=== PATIENT | male | born 1985 | race Caucasian/White ===

== ENCOUNTER → 2018-08-04 07:03 | Outpatient (CLI) | payer SELFPAY ==
--- NOTE | 2018-08-04 07:10 | MRI_ITS ---
STUDY: MRI THORACIC SPINE WITH AND WITHOUT CONTRAST REASON FOR EXAM: Male, 33 years old. 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 TECHNIQUE: 7.5 ml of Gadavist was administered intravenously for the contrast portion of the examination. COMPARISON: None. FINDINGS: Normal kyphosis of the thoracic spine. There is no substantial scoliosis. T1-2, T2-3, T3-4, T4-5, T5-6, T6-7, T7-8, T8-9, T9-10, T10-11, T11-12: Normal endplates. Normal disc hydration, heights and morphology of the corresponding intervertebral discs. Normal central canal and intervertebral neural foramina at the corresponding levels. There is high T1 and T2 regions within the C7, T7 and T10 vertebra consistent with incidental hemangiomas. No evidence of significant disc bulge, spinal canal narrowing or foraminal narrowing is present. Normal visualized thoracic cord. Normal conus medullaris that terminates at the L1 level.. The soft tissue structures are unremarkable. There is no enhancing abnormality. MRI/Spine Thoracic W/WO Contrast IMPRESSION: 1. Findings consistent with classic hemangiomas with bright T1 and T2 appearance C7, T7 and T10 with low signal on STIR imaging. Otherwise no evidence of abnormal enhancement. Given history recommend CT chest for complete evaluation of lung parenchyma and further osseous evaluation for corduroy appearance within these regions. Electronically Signed: Felix Green DO at 10:06 EDT , Service support ,
--- NOTE | 2018-08-04 07:11 | RAD_ITS ---
STUDY: X-RAY - ORBITS REASON FOR EXAM: Male, 33 years old. This study is being performed as a clearance examination for exclusion of orbital metal, prior to the performance of an MRI examination. TECHNIQUE: 2 view(s) of the orbits were obtained. COMPARISON: None. FINDINGS: Normal bilateral orbits without a metallic orbital foreign body. Normal visualized facial bones. Normal paranasal sinuses. The soft tissue structures are unremarkable. RAD/Orbits for Foreign Body IMPRESSION: No demonstrated metallic orbital foreign body. The patient is cleared for an MRI examination. Electronically Signed: Oksana Viera MD at 7:28 EDT Tel , Service support ,
== END ==
PROVIDERS: Family Provider Family Medicine; PCP Family Medicine
DX: C62.90 Malignant neoplasm of unspecified testis, unspecified whether descended or undescended (principal)
CPT/HCPCS: 70030; 72157; A9585

== ENCOUNTER → 2018-08-13 13:42 | Outpatient (CLI) | payer SELFPAY ==
--- NOTE | 2018-08-13 13:46 | VDUE_ITS ---
Reason For Study: Swelling Left Proximal Left jugular vein is spontaneous, widely patent, phasic, with no intraluminal echogenicity noted. Left subclavian vein is spontaneous, widely patent, phasic, with no intraluminal echogenicity noted. Left Arm Left axillary vein is spontaneous, patent, phasic, competent, compressible and demonstrates augmentation. Left brachial vein is compressible. Cephalic vein is noncompressible from the wrist to mid bicep. Above mid bicep cephalic vein is compressible. Left basilic vein is compressible. Left Lower Arm Left radial vein is compressible. Left ulnar vein is compressible. Patient Safety Brisa Dow, [facility] office notified of findings. Instructed to release patient, they will call patient directly with instructions. Interpretation Summary There is no evidence of left upper extremity deep vein thrombosis. Superficial thrombophlebitis left foream and upper arm cephalic vein Ordering Physician: Brisa Dow Performed By: Lorena Hoover RVT, RDCS and Student ???
== END ==
PROVIDERS: Family Provider Family Medicine; PCP Family Medicine
DX: M79.89 Other specified soft tissue disorders (principal); C62.11 Malignant neoplasm of descended right testis
CPT/HCPCS: 93971

== ENCOUNTER 2018-09-01 11:13 | Emergency (ER) | payer SELFPAY ==
[2018-09-01 11:15] VITALS: BP 144/90; PULSE 94; RESP 18; TEMP 36.6; O2SAT 98; BMI 27.3
[2018-09-01] MEDS: 0.9% Normal Saline 1,000 ML 1000 ML IV ×2 (11:57→13:19)
[2018-09-01] MEDS: Metoclopramide 10 MG/2 ML Vial IV (11:57)
[2018-09-01 12:13] LABS: Absolute Lymphocyte Count 0.46 X10^3/ul (0.83-4.51); Absolute Neutrophil Count 2.9 X10^3/uL (2.0-7.7); Eosinophil# 0.03 X10^3/uL; Eosinophils% 0.9 % (0-5); Hematocrit 40.4 % (40-54); Hemoglobin 13.7 g/dl (13.0-16.5); Lymphocyte # 0.46 X10^3/ul (4.0); Lymphocyte % 13.3 % (19-41); Mean Corp Hgb Conc 33.9 g/gl (32-36); Mean Corpuscular Volume 88.6 fL (80-94); Mean Platelet Vol. 8.9 fl (6.2-12.0); Monocyte# 0.04 X10^3/uL; Monocyte% 1.2 % (0-10); Neutrophil # 2.92 X10^3/uL (2.7-7.7); Platelet Count 182 K/mm3 (150-450); RBC Distribution Width CV 13.3 % (11.6-14.6); Red Blood Count 4.56 M/mm3 (4.6-6.2); White Blood Count 3.5 K/mm3 (4.4-11.0)
[2018-09-01 12:21] LABS: Anion Gap 7 (5-15); BUN 23 mg/dL (7-18); BUN/Creat Ratio 21.7 RATIO (10-20); Calcium,Total 8.5 mg/dL (8.5-10.1); Chloride 103 mmol/L (98-107); Creatinine, Serum 1.06 mg/dL (0.70-1.30); EST Glomerular Filtration Rate 85 mL/min (>60); Est Glom Filt Rate - Afr Amer 103 mL/min (>60); Glucose 92 mg/dL (74-106); Potassium 3.8 mmol/L (3.5-5.1); Sodium Level 139 mmol/L (136-145)
[2018-09-01 12:22] LABS: Differential Indicated SCAN CRITERIA MET; POSITIVE COUNT NO; POSITIVE DIFFERENTIAL YES; POSITIVE MORPHOLOGY NO
[2018-09-01 12:42] LABS: Differential Comment SCANNED
[2018-09-01] MEDS: Loperamide 2 MG Capsule 4 MG PO (12:55)
[2018-09-01 13:21] VITALS: BP 124/81; PULSE 76; RESP 16; O2SAT 100
--- NOTE | 2018-09-01 13:29 | ED.VISSUMM ---
- ER Visit Summary Date of Service: 09/01/18 Chief Complaint: [Vomiting and diarrhea History of Present Illness: The patient is a 33 M [presents the emergency department complaint of vomiting and diarrhea that started 2 days ago. Patient states he is thrown up about 5-10 times a day and having 8-9 watery stools a day. Patient states that his last week had the exact same symptoms and then his daughter had the same symptoms. Patient has not had a fever. Patient is currently undergoing chemotherapy for testicular cancer and his last chemo was yesterday. Patient is concerned that he just cannot keep any fluids down. Patient describes some diffuse abdominal discomfort.] Patient did not eat any unusual or undercooked foods. He denies recent antibiotic usage. Physical Examination: [HEENT-PERRLA, EOMI. Cranial nerves II through XII grossly intact. TMs clear. Mucous membranes dry. No adenopathy. Cardiovascular-regular rate and rhythm without murmur or ectopy Lungs-clear to auscultation, chest wall stable without crepitus or subcu emphysema Abdomen-normoactive bowel sounds, soft, nontender, no rebound or rigidity, no peritoneal signs. Extremities-intact ?4, normal range of motion, normal pulses, atraumatic] Test Results: CBC with differential obtained showed a white count of 3.5, hemoglobin 13.7, hematocrit 40, platelets 182. Chemistries unremarkable.] Emergency Department Course and Treatment: [Patient was given 2 L normal saline. Patient was given Reglan 10 g IV. Patient received Imodium. Patient had no further vomiting in the department and was able to tolerate a p.o. challenge. Orthostatic vital signs will be performed prior to discharge.] Treatment Plan: [Patient will be given Zofran ODT. Advised to use Imodium as needed for the diarrhea. Patient will be given a prescription for Bentyl.] Disposition: [Discharged home in stable condition. Patient advised to return to persistent vomiting, diarrhea, dehydration, or condition should worsen anyway.] Impression: [Viral gastroenteritis] This note was generated with [employer]™ Interactive dictation software. It may contain incorrect words, spelling, and punctuation that were not noted in review of the chart prior to signing ED Disposition - Plan for ED Patient: Chief Complaint: General Illness Referrals: Prasanna Pride [Primary Care Provider] -
--- NOTE | 2018-09-01 13:32 | ED.DEP ---
ED Disposition - Plan for ED Patient: Chief Complaint: General Illness Instructions: ED Gastroenteritis Viral Prescriptions: Ondansetron [Zofran Odt] 4 mg PO Q8H PRN PRN #10 tab PRN Reason: Nausea Dicyclomine HCl [Bentyl] 20 mg PO TIDAC #20 cap Referrals: Prasanna Pride [Primary Care Provider] - 3-5 Days
[2018-09-01 14:28] VITALS: BP 125/85; PULSE 75; RESP 16
== END 2018-09-01 14:28 | disposition home or self-care (01) ==
LOC: ED 11:40
PROVIDERS: Emergency Provider Emergency Medicine; Family Provider Family Medicine; PCP Family Medicine
DX: A08.4 Viral intestinal infection, unspecified (principal); C62.90 Malignant neoplasm of unspecified testis, unspecified whether descended or undescended; Z79.899 Other long term (current) drug therapy
CPT/HCPCS: 80048; 85025; 96361; 96374; 99284; J7030; A4216

== ENCOUNTER 2018-09-26 09:07 | Inpatient (IN) | payer SELFPAY ==
[2018-09-26 09:07] VITALS: BP 119/75; PULSE 100; RESP 18; TEMP 36.6; O2SAT 98; BMI 26.4
--- NOTE | 2018-09-26 09:35 | CT_ITS ---
STUDY: CT ABDOMEN AND PELVIS WITHOUT CONTRAST REASON FOR EXAM: Male, 33 years old. Left upper abdominal pain. History of right testicular carcinoma. RADIATION DOSAGE (If Supplied By Facility): CTDIvol = ( 7.52 ) mGy, DLP = ( 446.90 ) mGycm TECHNIQUE: Transaxial images were obtained from the dome of the diaphragm to the symphysis pubis without oral contrast, and without intravenous contrast. Sagittal and coronal images were reconstructed. Individualized dose optimization techniques were used for this CT. COMPARISON: None. FINDINGS: Pulmonary infiltrate in the left lower lobe. There is a 9.4 mm x 10.6 mm pleural-based nodule in the right lower lobe. This may represent focal infiltrate although radiographic follow-up is recommended. The visualized portions of the heart are within normal limits. Normal liver. Normal gallbladder and extrahepatic biliary system. Normal spleen. Normal pancreas. Normal bilateral adrenal glands. Normal right kidney. Normal left kidney. Normal visualized stomach. Normal small intestine. Normal colon. The patient is status post appendectomy. Normal abdominal aorta. Normal inferior vena cava. Normal retroperitoneum. Normal urinary bladder. There is a small umbilical hernia containing fat. Normal osseous structures. CT/Abdomen/Pelvis without Cont IMPRESSION: Focal left lower lobe infiltrate. Pleural based nodularity right lung base as described. Radiographic follow-up is recommended. Electronically Signed: Juice Carlos MD at 10:38 EST Tel [phone], Service support ,
[2018-09-26 10:01] LABS: Absolute Lymphocyte Count 0.86 X10^3/ul (0.83-4.51); Absolute Neutrophil Count 3.5 X10^3/uL (2.0-7.7); Basophil# 0.01 X10^3/uL; Basophil% 0.2 % (0-1); Eosinophil# 0.01 X10^3/uL; Eosinophils% 0.2 % (0-5); Lymphocyte # 0.86 X10^3/ul (4.0); Lymphocyte % 19.1 % (19-41); Mean Corp Hgb Conc 34.3 g/gl (32-36); Mean Corpuscular Hgb 29.9 pg (27.0-32.0); Mean Corpuscular Volume 87.3 fL (80-94); Mean Platelet Vol. 9.6 fl (6.2-12.0); Monocyte% 2.2 % (0-10); Neutrophil # 3.51 X10^3/uL (2.7-7.7); Neutrophil % 77.9 % (47-70); Platelet Count 187 K/mm3 (150-450); RBC Distribution Width CV 13.8 % (11.6-14.6); RBC Distribution Width SD 43.4 fl (35.1-43.9); Red Blood Count 4.01 M/mm3 (4.6-6.2); White Blood Count 4.5 K/mm3 (4.4-11.0)
[2018-09-26] MEDS: Ondansetron 4 MG/2 ML Vial IV ×3 (10:03→17:21)
[2018-09-26] MEDS: 0.9% Normal Saline 1,000 ML 1000 ML IV (10:03)
[2018-09-26] MEDS: morphine 8 MG/ML Syringe IV ×2 (10:03→13:04)
[2018-09-26 10:06] LABS: POSITIVE COUNT NO; POSITIVE DIFFERENTIAL NO; POSITIVE MORPHOLOGY NO
--- NOTE | 2018-09-26 10:10 | ED.DCSUM_ITS ---
- ER Visit Summary Date of Service: 09/26/18 Chief Complaint: [] Flank pain this morning history of testicular cancer with metastasis History of Present Illness: The patient is a 33 M [] patient was diagnosed with testicular cancer had surgery chemotherapy at [facility] he had surveillance CTs the summer that showed recurrence of increased lymph nodes in the abdomen he was started on chemotherapy June, had chemotherapy Monday, and then this morning he began having pain to the left flank he has had no fever no cough no urinary symptoms, no history metastasis to the bones back no urinary symptoms history of kidney stones or infection Physical Examination: [] 119/75 General, no distress resting comfortably HEENT is generally unremarkable The neck is supple no adenopathy Cardiovascular, regular rate and rhythm Lungs, clear bilateral Abdomen, soft nontender, He has a vague pain to the left flank is T-spine lumbar back are nontender his flank is not tender is absolutely soft and nontender Extremities, no clubbing cyanosis or edema Neurologic, awake alert answering questions appropriately moving all 4 extremities Test Results: [] Emergency Department Course and Treatment: [] The above CT flank screening labs, the labs are generally unremarkable see those reports, the CT shows infiltrate left base, however the patient does not have cough fever or pneumonia symptoms at this time given all the above he was sent for CTA chest radiologist reports CTA chest shows bilateral pulmonary embolism, there is no sign of saddle, there is no signs of right heart strain there is a small infiltrate left base Patient really started on IV heparin discussed the case with him and his they understand the above they agreed to be admitted here at [facility], I spoke with Dr. Garcia who will be by to see him shortly for admission, on reevaluation his vital signs remained stable he is awake and alert no hemodynamic instability Treatment Plan: [] Disposition: [] Admit stable Impression: [] Bilateral pulmonary embolism, history of testicular cancer with recent chemotherapy at [facility] This note was generated with [employer] dictation software. It may contain incorrect words, spelling, and punctuation that were not noted in review of the chart prior to signing ED Disposition - Plan for ED Patient: Chief Complaint: Flank Pain Referrals: Prasanna Pride [Primary Care Provider] -
[2018-09-26 10:12] LABS: Bacteria 0 SEEN /hpf (None Seen); Mucous, Urine 0 SEEN /hpf (<or=2+); Squamous Epithelial Cells - UA 0 SEEN /hpf (0-5)
[2018-09-26 10:16] LABS: Color, Urine Yellow (Yellow); Glucose, Dipstick Normal (Normal); Ketone-Dipstick Negative (Negative); Leukocyte Esterase-Dipstick Negative /ul (Negative); Nitrite-Dipstick Negative (Negative); Occult Blood-Urine 50 /ul (Negative); Protein-Dipstick 30 mg/dl (Negative); Urine Bilirubin Dipstick Negative (Negative); Urine Clarity Clear (Clear); Urine Urobilinogen Normal (Normal)
[2018-09-26 10:17] LABS: ALB/GLOB Ratio 0.9 RATIO (0.9-2.4); AST(SGOT) 15 U/L (15-37); Alanine Aminotransfer ALT/SGPT 40 U/L (16-61); Albumin, Serum 3.2 g/dL (3.2-5.0); Alkaline Phosphatase 102 U/L (45-117); Anion Gap 9 (5-15); BUN 16 mg/dL (7-18); BUN/Creat Ratio 14.8 RATIO (10-20); Calcium,Total 8.8 mg/dL (8.5-10.1); Chloride 100 mmol/L (98-107); Creatinine, Serum 1.08 mg/dL (0.70-1.30); EST Glomerular Filtration Rate 84 mL/min (>60); Est Glom Filt Rate - Afr Amer 101 mL/min (>60); Estimated Creatinine Clearance 94.12 ml/min; Globulin 3.6 g/dL (2.2-4.2); Glucose 92 mg/dL (74-106); Potassium 4.3 mmol/L (3.5-5.1); Protein, Total 6.8 g/dL (6.4-8.2); Sodium Level 137 mmol/L (136-145)
[2018-09-26 10:25] LABS: Red Blood Cells-Urine 5-10 SEEN /hpf (0-5); White Blood Cells 0 SEEN /hpf (0-5)
--- NOTE | 2018-09-26 11:50 | RAD_ITS ---
STUDY: X-RAY CHEST REASON FOR EXAM: Male, 33 years old. Cough. Dyspnea with deep breaths. History of testicular carcinoma. TECHNIQUE: PA and lateral views of the chest. COMPARISON: None. FINDINGS: Patchy left lower lobe infiltrate. Blunting of the left cardiac phrenic angle. Normal size heart. Normal mediastinum and antonio. Normal visualized pulmonary arteries. Normal visualized aortic arch and descending thoracic aorta. Normal visualized thoracic spine. Normal visualized ribs, clavicles, and shoulders. There is no demonstrated abnormality of the visualized soft tissue structures of the upper abdomen. RAD/Chest PA and Lateral IMPRESSION: Patchy left lower lobe infiltrate. Electronically Signed: Juice Carlos MD at 12:46 EST Tel [phone], Service support ,
--- NOTE | 2018-09-26 11:51 | CT_ITS ---
STUDY: CTA CHEST REASON FOR EXAM: Male, 33 years old. Shortness of breath. History of testicular carcinoma. RADIATION DOSAGE (If Supplied By Facility): CTDIvol = ( 10.19 ) mGy, DLP = ( 438.82 ) mGycm TECHNIQUE: The examination was performed with the intravenous administration of 75ml ml of Isovue 370 contrast material. Post-processing of the angiographic images was performed, with multiplanar reformation and 3D reconstruction. Individualized dose optimization techniques were used for this CT. COMPARISON: None. FINDINGS: There are multiple bilateral intraluminal filling defects in the right and left pulmonary arteries as well as branches to the upper and lower lobe pulmonary arteries worse on the left side. This is in keeping with diffuse pulmonary embolism. Normal thoracic aorta and visualized great vessels. There is no demonstrated aortic dissection. Normal heart and pericardium. Normal mediastinum. Normal hilar regions. Normal visualized trachea and bronchi. The lungs are well expanded. There is evidence of airspace disease in the left lower lobe. There is a 1.1 cm x 1.3 cm nodular density which is pleural-based in the right lower lobe as seen on axial image #70. This may represent either a focal area of the infiltration versus a true nodule. Radiographic follow-up is recommended. Normal pleura. Normal chest wall structures. There is evidence of a prominence of trabecula in the lower thoracic vertebrae most likely representing a hemangioma. Normal visualized upper abdomen. CT/CTA Chest W/WO Contrast IMPRESSION: Diffuse bilateral pulmonary embolism. Infiltration in the left lower lobe with nodular change in the right lower lobe. Radiographic follow-up is recommended. N.B. : The above information has been verbally conveyed by Juice Carlos MD to Dallin Orozco on 09/26/2018 12:50:07 (ET). Electronically Signed: Juice Carlos MD at 12:51 EST Tel [phone], Service support ,
--- NOTE | 2018-09-26 13:03 | EKG12_ITS ---
Test Reason : DYSRHYTHMIA Blood Pressure : / mmHG Vent. Rate : 092 BPM Atrial Rate : 092 BPM P-R Int : 150 ms QRS Dur : 094 ms QT Int : 374 ms P-R-T Axes : 026 029 018 degrees QTc Int : 462 ms Normal sinus rhythm Incomplete right bundle branch block Borderline ECG Confirmed by DOLORES CHAVEZ, JOAQUIN ([id number]), news editor HUMZA VALLES ([id number]) on 09/28/2018 12:01:00 PM Referred By: YESSI Confirmed By:JOAQUIN BERNAL MD
[2018-09-26 13:13] LABS: Partial Thromboplast Time 24.8 Seconds (24.1-36.2)
--- NOTE | 2018-09-26 13:20 | NURSING ---
107 PCU JOSE KENDALL PE, TESTICULAR CA
--- NOTE | 2018-09-26 13:25 | NURSING ---
NO OLD EKGS
--- NOTE | 2018-09-26 13:26 | PCM.HP.STD ---
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 Patient gets [address] surveillance on a recent lymphadenopathy in abdomen most probably retroperitoneal lymphadenopathy. Patient did not had previous PE or DVT as he gets surveillance CT chest too. He had superficial thrombophlebitis of hand and forearm due to IV line in the past. The patient further said he gets short of breath on the fifth 6-day of every cycle of chemotherapy but this time he was very short of breath, loss of energy mild dyspnea on exertion but denies chest pain or chest pressure. In ED, heart rate 100/min, no hypoxia or tachypnea blood pressure 119/75. CT chest showed focal left lower lobe infiltrate and pleural-based nodularity in right lower lung with normal retroperitoneum reported. CT chest was done and reported as multiple, diffuse bilateral right and left pulmonary arteries and lobar branches and further subdivision, worse on the left side PE with infiltration left lower lobe. Past Medical History Allergies Penicillins [PCN] Allergy (Verified 09/26/18 09:10) Hives shellfish derived Allergy (Verified 09/26/18 09:10) Angioedema Home Medications: Ambulatory Orders Medication Instructions Recorded Omeprazole [Prilosec] 20 mg PO DAILY 09/01/18 Ondansetron [Zofran Odt] 4 mg PO Q8H PRN PRN 09/01/18 Prochlorperazine Maleate 10 mg PO Q6H PRN PRN 09/01/18 [Compazine] Aspirin [Aspirin EC] 500 mg PO PRN PRN 09/26/18 Dicyclomine HCl [Bentyl] 20 mg PO TIDAC 09/26/18 Lorazepam [Ativan] 0.5 mg PO DAILY PRN PRN 09/26/18 Ondansetron HCl [Zofran] 4 mg PO PRN PRN 09/26/18 Sumatriptan Succinate [Imitrex] 50 mg PO PRN PRN 09/26/18 Smoking Status: Never smoker - *Family History Paternal History Items: No pertinent history - No pertinent first-degree family history of PE or VTE or hypercoagulable disorder Review of Systems Constitutional: Reports: Weakness, Fatigue. Denies: Chills, Fever, Weight Change HEENT: Denies: Head Aches, Sinus Congestion, Sinus Drainage Cardiovascular: Reports: Chest Pain - Pleuritic left lower chest pain. Denies: Palpitations Respiratory: Reports: Pleuritic Pain, Shortness of breath upon exertion. Denies: Cough, Hemoptysis, Shortness of breath at rest, Sputum production Gastrointestinal: Reports: Abdominal Pain - Mild diffuse abdominal pain, chronic generally happens after chemotherapy. Denies: Nausea, Vomiting Genitourinary: Denies: Dysuria, Frequency Musculoskeletal: Denies: Joint Pain, Joint Tenderness Skin: Denies: Rash, Wounds Neurological: Denies: Numbness, Tingling, Focal weakness Psychiatric: Denies: Anxiety, Depression, Homicidal Ideations, Suicidal Ideations Hematologic/ Lymphatic: Denies: Easy Bruising, Easy Bleeding VTE Information - Inpt Only VTE Present on Admission: Yes VTE Mechan Device Prophylaxis: None VTE Pharm Prophylaxis ordered?: Yes Reason prophylaxis not ordered:: Procedure Not Indicated - On therapeutic Lovenox dose Patient Problems: Active and Suspected Problems Acute pulmonary embolism (Acute) Seminoma of right testis (Acute) Left flank pain (Acute) - Physical Exam General: Alert, Oriented x3, Cooperative HEENT: Atraumatic, PERRLA, EOMI, Normocephalic Oral: Dry Mucosa Neck: Supple, No JVD, Negative Carotid Bruits Lungs: No rhonchi, No wheeze, No rales, Diminished - Air entry diminished on left lower lung, Short of Breath Cardiovascular: Regular rate, Regular Rhythm, Normal S1, Normal S2, No murmurs Abdomen: Bowel Sounds Present, Soft, Non Tender, Non-Distended Extremities: No edema, Capillary Refill Less than 3 Seconds Skin: No rashes, No breakdown Musculoskeletal: No Tenderness to Palpation of Joints or Extremities Neurological: Cranial nerves II-XII grossly intact, Deep Tendon Reflexes 2+/4 and Symmetrical, Neuro grossly intact, Motor Exam 5/5 strength throughout Psych/Mental Status: Normal Affect, Appropriate Vital Signs Temp Pulse Resp BP Pulse Ox 97.9 F 100 18 119/75 98 09/26/18 09:07 09/26/18 09:07 09/26/18 09:07 09/26/18 09:07 09/26/18 09:07 Oxygen Delivery Method Room Air Weight: 174 lb Body Mass Index (BMI) 26.4 Laboratory Tests Past 24 Hrs 09/26/18 09/26/18 09/26/18 09:52 09:52 10:05 WBC 4.5 RBC 4.01 L Hgb 12.0 L Hct 35.0 L MCV 87.3 MCH 29.9 MCHC 34.3 RDW 13.8 RDW Differential 43.4 Plt Count 187 MPV 9.6 Immature Gran % (Auto) 0.400 Neut % (Auto) 77.9 H Lymph % (Auto) 19.1 [place] % (Auto) 2.2 Eos % (Auto) 0.2 Baso % (Auto) 0.2 Absolute Neuts (auto) 3.5 Absolute Lymphs (auto) 0.86 Total Counted Not Reportable APTT Sodium 137 Potassium 4.3 Chloride 100 Carbon Dioxide 28.0 Anion Gap 9 BUN 16 Creatinine 1.08 Estim Creat Clear Calc 94.12 Est GFR (MDRD) Af Amer 101 Est GFR (MDRD) Non-Af 84 BUN/Creatinine Ratio 14.8 Glucose 92 Calcium 8.8 Total Bilirubin 0.60 AST 15 ALT 40 Alkaline Phosphatase 102 Total Protein 6.8 Albumin 3.2 Globulin 3.6 Albumin/Globulin Ratio 0.9 Urine Color Yellow Urine Clarity Clear Urine pH 7.0 Ur Specific Mclean 1.010 Urine Protein 30 H Urine Glucose (UA) Normal Urine Ketones Negative Urine Occult Blood 50 H Urine Nitrite Negative Urine Bilirubin Negative Urine Urobilinogen Normal Ur Leukocyte Esterase Negative Urine RBC 5-10 SEEN Urine WBC 0 SEEN Ur Squamous Epith Cells 0 SEEN Urine Bacteria 0 SEEN Urine Mucus 0 SEEN 09/26/18 12:50 WBC RBC Hgb Hct MCV MCH MCHC RDW RDW Differential Plt Count MPV Immature Gran % (Auto) Neut % (Auto) Lymph % (Auto) [place] % (Auto) Eos % (Auto) Baso % (Auto) Absolute Neuts (auto) Absolute Lymphs (auto) Total Counted APTT Pending Sodium Potassium Chloride Carbon Dioxide Anion Gap BUN Creatinine Estim Creat Clear Calc Est GFR (MDRD) Af Amer Est GFR (MDRD) Non-Af BUN/Creatinine Ratio Glucose Calcium Total Bilirubin AST ALT Alkaline Phosphatase Total Protein Albumin Globulin Albumin/Globulin Ratio Urine Color Urine Clarity Urine pH Ur Specific Mclean Urine Protein Urine Glucose (UA) Urine Ketones Urine Occult Blood Urine Nitrite Urine Bilirubin Urine Urobilinogen Ur Leukocyte Esterase Urine RBC Urine WBC Ur Squamous Epith Cells Urine Bacteria Urine Mucus Assessment/Plan All Active Problems Acute pulmonary embolism (Acute) Seminoma of right testis (Acute) Left flank pain (Acute) The patient is a 33 year old M with history of testicular cancer, seminoma had right orchiectomy came to ER with left lower chest/flank pain, pleuritic in nature exacerbated on deep breathing. Patient gets [address] surveillance on a recent lymphadenopathy in abdomen most probably retroperitoneal lymphadenopathy. Patient did not had previous PE or DVT as he gets surveillance CT chest too. He had superficial thrombophlebitis of hand and forearm due to IV line in the past. The patient further said he gets short of breath on the fifth 6-day of every cycle of chemotherapy but this time he was very short of breath, loss of energy mild dyspnea on exertion but denies chest pain or chest pressure. In ED, heart rate 100/min, no hypoxia or tachypnea blood pressure 119/75. CT chest showed focal left lower lobe infiltrate and pleural-based nodularity in right lower lung with normal retroperitoneum reported. CT chest was done and reported as multiple, diffuse bilateral right and left pulmonary arteries and lobar branches and further subdivision, worse on the left side PE with infiltration left lower lobe. 1. Acute bilateral pulmonary artery emboli: Patient is being admitted in PCU. Started on Lovenox 1 mg/kg body weight every 12 hourly. residential monitor. EKG showed normal sinus rhythm at 92 bpm with incomplete RBBB and small S1Q3T3 changes. 2D echo ordered. IV fluid normal saline at 100 mils per hour. The exact etiology of PE unclear but possible secondary to chemotherapy. 2. Right-sided seminoma, CA testis on chemotherapy status post right orchidectomy: Patient follows oncologist, Dr Lorenz, in [facility]. He is on fourth cycle of cisplatin and etoposide, last one past . Previously he had 2 cycles with bleomycin but was discontinued because of possible pulmonary toxicity. 3. Left lower lower lobe possible HCAP: Pneumonia or pulmonary embolism possible cause of pleuritic left lower chest pain/flank pain. CT chest shows evidence of airspace disease in left lower lobe. Started on IV Levaquin 750 mg daily as he is allergic to penicillin. Pneumonia workup eluding MRSA nasal screen and flu test ordered. This note was generated with [employer] dictation software. Every effort was made to ensure accuracy, however computerized radar mechanic mistakes may persist. Code Visit Inpatient E&M: 31336 Init Hosp L3
[2018-09-26] MEDS: Heparin Injection (Vial) 5,000 UNIT/ML VIAL 5000 UNIT IV (13:30)
[2018-09-26] MEDS: HEPARIN/D5w 25,000 UNITS 25,000 UNITS/250 ML IV.SOLN. 11 UNITS IV (13:32)
[2018-09-26] MEDS: Morphine 4 MG/ML Syringe IV ×2 (13:32→14:56)
[2018-09-26] MEDS: 0.9% Normal Saline 1,000 ML 999 ML IV (13:32)
--- NOTE | 2018-09-26 13:32 | HP.PCM_ITS ---
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 Patient gets [address] surveillance on a recent lymphadenopathy in abdomen most probably retroperitoneal lymphadenopathy. Patient did not had previous PE or DVT as he gets surveillance CT chest too. He had superficial thrombophlebitis of hand and forearm due to IV line in the past. The patient further said he gets short of breath on the fifth 6-day of every cycle of chemotherapy but this time he was very short of breath, loss of energy mild dyspnea on exertion but denies chest pain or chest pressure. In ED, heart rate 100/min, no hypoxia or tachypnea blood pressure 119/75. CT chest showed focal left lower lobe infiltrate and pleural-based nodularity in right lower lung with normal retroperitoneum reported. CT chest was done and reported as multiple, diffuse bilateral right and left pulmonary arteries and lobar branches and further subdivision, worse on the left side PE with infiltration left lower lobe. Past Medical History Allergies Penicillins [PCN] Allergy (Verified 09/26/18 09:10) Hives shellfish derived Allergy (Verified 09/26/18 09:10) Angioedema Home Medications: Ambulatory Orders Medication Instructions Recorded Omeprazole [Prilosec] 20 mg PO DAILY 09/01/18 Ondansetron [Zofran Odt] 4 mg PO Q8H PRN PRN 09/01/18 Prochlorperazine Maleate 10 mg PO Q6H PRN PRN 09/01/18 [Compazine] Aspirin [Aspirin EC] 500 mg PO PRN PRN 09/26/18 Dicyclomine HCl [Bentyl] 20 mg PO TIDAC 09/26/18 Lorazepam [Ativan] 0.5 mg PO DAILY PRN PRN 09/26/18 Ondansetron HCl [Zofran] 4 mg PO PRN PRN 09/26/18 Sumatriptan Succinate [Imitrex] 50 mg PO PRN PRN 09/26/18 Smoking Status: Never smoker - *Family History Paternal History Items: No pertinent history - No pertinent first-degree family history of PE or VTE or hypercoagulable disorder Review of Systems Constitutional: Reports: Weakness, Fatigue. Denies: Chills, Fever, Weight Change HEENT: Denies: Head Aches, Sinus Congestion, Sinus Drainage Cardiovascular: Reports: Chest Pain - Pleuritic left lower chest pain. Denies: Palpitations Respiratory: Reports: Pleuritic Pain, Shortness of breath upon exertion. Denies: Cough, Hemoptysis, Shortness of breath at rest, Sputum production Gastrointestinal: Reports: Abdominal Pain - Mild diffuse abdominal pain, chronic generally happens after chemotherapy. Denies: Nausea, Vomiting Genitourinary: Denies: Dysuria, Frequency Musculoskeletal: Denies: Joint Pain, Joint Tenderness Skin: Denies: Rash, Wounds Neurological: Denies: Numbness, Tingling, Focal weakness Psychiatric: Denies: Anxiety, Depression, Homicidal Ideations, Suicidal Ideations Hematologic/ Lymphatic: Denies: Easy Bruising, Easy Bleeding VTE Information - Inpt Only VTE Present on Admission: Yes VTE Mechan Device Prophylaxis: None VTE Pharm Prophylaxis ordered?: Yes Reason prophylaxis not ordered:: Procedure Not Indicated - On therapeutic Lovenox dose Patient Problems: Active and Suspected Problems Acute pulmonary embolism (Acute) Seminoma of right testis (Acute) Left flank pain (Acute) - Physical Exam General: Alert, Oriented x3, Cooperative HEENT: Atraumatic, PERRLA, EOMI, Normocephalic Oral: Dry Mucosa Neck: Supple, No JVD, Negative Carotid Bruits Lungs: No rhonchi, No wheeze, No rales, Diminished - Air entry diminished on left lower lung, Short of Breath Cardiovascular: Regular rate, Regular Rhythm, Normal S1, Normal S2, No murmurs Abdomen: Bowel Sounds Present, Soft, Non Tender, Non-Distended Extremities: No edema, Capillary Refill Less than 3 Seconds Skin: No rashes, No breakdown Musculoskeletal: No Tenderness to Palpation of Joints or Extremities Neurological: Cranial nerves II-XII grossly intact, Deep Tendon Reflexes 2+/4 and Symmetrical, Neuro grossly intact, Motor Exam 5/5 strength throughout Psych/Mental Status: Normal Affect, Appropriate Vital Signs Temp Pulse Resp BP Pulse Ox 97.9 F 100 18 119/75 98 09/26/18 09:07 09/26/18 09:07 09/26/18 09:07 09/26/18 09:07 09/26/18 09:07 Oxygen Delivery Method Room Air Weight: 174 lb Body Mass Index (BMI) 26.4 Laboratory Tests Past 24 Hrs 09/26/18 09/26/18 09/26/18 09:52 09:52 10:05 WBC 4.5 RBC 4.01 L Hgb 12.0 L Hct 35.0 L MCV 87.3 MCH 29.9 MCHC 34.3 RDW 13.8 RDW Differential 43.4 Plt Count 187 MPV 9.6 Immature Gran % (Auto) 0.400 Neut % (Auto) 77.9 H Lymph % (Auto) 19.1 [place] % (Auto) 2.2 Eos % (Auto) 0.2 Baso % (Auto) 0.2 Absolute Neuts (auto) 3.5 Absolute Lymphs (auto) 0.86 Total Counted Not Reportable APTT Sodium 137 Potassium 4.3 Chloride 100 Carbon Dioxide 28.0 Anion Gap 9 BUN 16 Creatinine 1.08 Estim Creat Clear Calc 94.12 Est GFR (MDRD) Af Amer 101 Est GFR (MDRD) Non-Af 84 BUN/Creatinine Ratio 14.8 Glucose 92 Calcium 8.8 Total Bilirubin 0.60 AST 15 ALT 40 Alkaline Phosphatase 102 Total Protein 6.8 Albumin 3.2 Globulin 3.6 Albumin/Globulin Ratio 0.9 Urine Color Yellow Urine Clarity Clear Urine pH 7.0 Ur Specific [place] 1.010 Urine Protein 30 H Urine Glucose (UA) Normal Urine Ketones Negative Urine Occult Blood 50 H Urine Nitrite Negative Urine Bilirubin Negative Urine Urobilinogen Normal Ur Leukocyte Esterase Negative Urine RBC 5-10 SEEN Urine WBC 0 SEEN Ur Squamous Epith Cells 0 SEEN Urine Bacteria 0 SEEN Urine Mucus 0 SEEN 09/26/18 12:50 WBC RBC Hgb Hct MCV MCH MCHC RDW RDW Differential Plt Count MPV Immature Gran % (Auto) Neut % (Auto) Lymph % (Auto) [place] % (Auto) Eos % (Auto) Baso % (Auto) Absolute Neuts (auto) Absolute Lymphs (auto) Total Counted APTT Pending Sodium Potassium Chloride Carbon Dioxide Anion Gap BUN Creatinine Estim Creat Clear Calc Est GFR (MDRD) Af Amer Est GFR (MDRD) Non-Af BUN/Creatinine Ratio Glucose Calcium Total Bilirubin AST ALT Alkaline Phosphatase Total Protein Albumin Globulin Albumin/Globulin Ratio Urine Color Urine Clarity Urine pH Ur Specific [place] Urine Protein Urine Glucose (UA) Urine Ketones Urine Occult Blood Urine Nitrite Urine Bilirubin Urine Urobilinogen Ur Leukocyte Esterase Urine RBC Urine WBC Ur Squamous Epith Cells Urine Bacteria Urine Mucus Assessment/Plan All Active Problems Acute pulmonary embolism (Acute) Seminoma of right testis (Acute) Left flank pain (Acute) The patient is a 33 year old M with history of testicular cancer, seminoma had right orchiectomy came to ER with left lower chest/flank pain, pleuritic in nature exacerbated on deep breathing. Patient gets [address] surveillance on a recent lymphadenopathy in abdomen most probably retroperitoneal lymphadenopathy. Patient did not had previous PE or DVT as he gets surveillance CT chest too. He had superficial thrombophlebitis of hand and forearm due to IV line in the past. The patient further said he gets short of breath on the fifth 6-day of every cycle of chemotherapy but this time he was very short of breath, loss of energy mild dyspnea on exertion but denies chest pain or chest pressure. In ED, heart rate 100/min, no hypoxia or tachypnea blood pressure 119/75. CT chest showed focal left lower lobe infiltrate and pleural-based nodularity in right lower lung with normal retroperitoneum reported. CT chest was done and reported as multiple, diffuse bilateral right and left pulmonary arteries and lobar branches and further subdivision, worse on the left side PE with inf iltration left lower lobe. 1. Acute bilateral pulmonary artery emboli: Patient is being admitted in PCU. Started on Lovenox 1 mg/kg body weight every 12 hourly. satellite project site monitor. EKG s howed normal sinus rhythm at 92 bpm with incomplete RBBB and small S1Q3T3 changes. 2D echo ordered. IV fluid normal saline at 100 mils per hour. The exact etiology of PE unclear but possible secondary to chemotherapy. 2. Right-sided seminoma, CA testis on chemotherapy status post right orchidectomy: Patient follows oncologist, Dr Lorenz, in [facility]. He is on fourth cycle of cisplatin and etoposide, last one past . Previously he had 2 cycles with bleomycin but was discontinued because of possible pulmonary toxicity. 3. Left lower lower lobe possible HCAP: Pneumonia or pulmonary embolism possible cause of pleuritic left lower chest pain/flank pain. CT chest shows evidence of airspace disease in left lower lobe. Started on IV Levaquin 750 mg daily as he is allergic to penicillin. Pneumonia workup eluding MRSA nasal screen and flu test ordered. This note was generated with [employer] dictation software. Every effort was made to ensure accuracy, however computerized core inspector mistakes may persist. Code Visit Inpatient E&M: 97445 Init Hosp L3
[2018-09-26 13:35] VITALS: BP 114/67; PULSE 91; RESP 18; O2SAT 99
[2018-09-26 14:28] VITALS: BP 115/65; PULSE 84; RESP 14; TEMP 36.4; O2SAT 100
--- NOTE | 2018-09-26 14:30 | ECHOD_ITS ---
Reason For Study: PE Procedure This was a 2D Doppler, Color Flow transthoracic echocardiogram. Unable to perform strain imaging due to suboptimal imaging. The exam was of poor technical quality due to patients inability to lay in LLD position.. Images obtained while sitting in upright position due to pain and SOB. Left Ventricle Normal size and thickness. The estimated ejection fraction is 65 %. Stage 1 diastolic dysfunction. No regional wall motion abnormalities noted. Right Ventricle Normal size and thickness. Normal systolic function. Atria Normal left atrium. Normal right atrium. Normal atrial septum. Mitral Valve The mitral valve is structurally normal. No prolapse or stenosis seen. Tricuspid Valve Normal tricuspid valve. Trivial tricuspid valve insufficiency. Right ventricular systolic pressure estimated to be 27 mmHg. Aortic Valve Normal aortic valve. Trisinus/trileaflet aortic valve. Pulmonic Valve Normal pulmonic valve. Great Vessels Normal aortic root. Normal arch. Normal inferior vena cava. Inferior vena cava collapse with sniff. Pericardium/Pleural No pericardial effusion. MMode/2D Measurements & Calculations LVIDd: 4.3 cm IVSd: 1.0 cm Ao root diam: 3.1 cm LVIDs: 3.0 cm LVPWd: 0.97 cm FS: 29.6 % LAV(MOD-bp): 36.1 ml LA A4 area: 14.6 cm2 LA dimension(2D): 2.6 cm LAV(MOD-bp) Indexed: 18.7 ml/m2 LAV(MOD-sp2): 28.9 ml LAV(MOD-sp4): 29.7 ml Time Measurements MV dec time: 0.25 sec Doppler Measurements & Calculations MV E max jovani: 49.1 cm/sec Lat Peak E' Jovani: 9.5 cm/sec Med Peak E' Jovani: 7.2 cm/sec MV A max jovani: 65.6 cm/sec E/E' lat: 5.2 E/E' med: 6.8 MV E/A: 0.75 TR max jovani: 227.4 cm/sec TR max P.7 mmHg Interpretation Summary The estimated ejection fraction is 65 %. Stage 1 diastolic dysfunction. Trivial tricuspid valve insufficiency. Right ventricular systolic pressure estimated to be 27 mmHg. There is no comparison study available. Ordering Physician: Jorge Garcia Referring Physician: RON CLARK Performed By: Mis Carlos, SIOM[place], RVT
[2018-09-26 14:31] VITALS: BMI 26.6
[2018-09-26 14:35] VITALS: BMI 26.6
[2018-09-26] MEDS: 0.9% Normal Saline 1,000 ML 100 ML IV (14:55)
[2018-09-26 15:17] LABS: BNP,B-Type NATRIURETIC PEPTIDE 2.1 pg/mL (0-100)
[2018-09-26] MEDS: levoFLOXacin IV 750 MG/150 ML BAG 100 MG IV (15:31)
[2018-09-26 16:00] VITALS: PULSE 90
[2018-09-26] MEDS: Enoxaparin 80 MG/0.8 ML Syringe SC (16:10)
--- NOTE | 2018-09-26 16:55 | CPS ---
Pt. unable to do IS exercise. Instructed patient on device, but when took 1 breath said he had a sharp pain. Refused to do exercise after this incident.
[2018-09-26 18:11] LABS: M R Staph aureus DNA By PCR Negative (Negative); Probe Check PASS; Specimen Processing Control PASS
[2018-09-26 20:00] VITALS: PULSE 95
[2018-09-26 20:29] VITALS: BP 127/64; PULSE 87; RESP 20; TEMP 36.8; O2SAT 98
[2018-09-26] MEDS: oxyCODONE 5 MG Tablet PO (20:35)
[2018-09-26] MEDS: Acetaminophen 325 MG Tablet 650 MG PO (20:36)
[2018-09-26] MEDS: proCHLORPERazine 5 MG Tablet 10 MG PO (20:39)
[2018-09-27] VITALS: PULSE 107
[2018-09-27] MEDS: LORazepam 0.5 MG Tablet PO (00:03)
[2018-09-27] MEDS: 0.9% NaCl Peripheral Flush Adult/Peds IV (00:03)
[2018-09-27] MEDS: Ondansetron 4 MG/2 ML Vial IV ×2 (00:03→08:40)
[2018-09-27] MEDS: 0.9% Normal Saline 1,000 ML 100 ML IV (02:21)
[2018-09-27 02:23] VITALS: BP 128/68; PULSE 84; RESP 16; TEMP 36.7; O2SAT 98
[2018-09-27 03:59] VITALS: PULSE 86
[2018-09-27] MEDS: oxyCODONE 5 MG Tablet PO ×3 (04:41→12:42)
[2018-09-27] MEDS: proCHLORPERazine 5 MG Tablet 10 MG PO ×2 (04:42→11:03)
[2018-09-27 05:51] LABS: Hematocrit 29.5 % (40-54); Hemoglobin 9.9 g/dl (13.0-16.5); Mean Corp Hgb Conc 33.6 g/gl (32-36); Mean Corpuscular Hgb 29.5 pg (27.0-32.0); Mean Corpuscular Volume 87.8 fL (80-94); Mean Platelet Vol. 9.4 fl (6.2-12.0); Platelet Count 185 K/mm3 (150-450); RBC Distribution Width CV 13.8 % (11.6-14.6); RBC Distribution Width SD 44.6 fl (35.1-43.9); Red Blood Count 3.36 M/mm3 (4.6-6.2); White Blood Count 3.5 K/mm3 (4.4-11.0)
[2018-09-27 06:00] LABS: Scan Indicated on CBC? Y/N NO
[2018-09-27 06:07] LABS: Anion Gap 8 (5-15); BUN 16 mg/dL (7-18); BUN/Creat Ratio 16.6 RATIO (10-20); Calcium,Total 8.5 mg/dL (8.5-10.1); Chloride 105 mmol/L (98-107); Creatinine, Serum 0.97 mg/dL (0.70-1.30); EST Glomerular Filtration Rate 95 mL/min (>60); Est Glom Filt Rate - Afr Amer 115 mL/min (>60); Estimated Creatinine Clearance 104.79 ml/min; Glucose 94 mg/dL (74-106); Potassium 4.2 mmol/L (3.5-5.1); Sodium Level 139 mmol/L (136-145)
[2018-09-27] MEDS: Dicyclomine 10 MG Capsule 20 MG PO ×2 (06:27→10:49)
[2018-09-27] MEDS: Enoxaparin 80 MG/0.8 ML Syringe SC (06:29)
[2018-09-27 08:02] VITALS: PULSE 79
[2018-09-27 08:45] VITALS: BP 122/62; PULSE 86; RESP 18; TEMP 36.6; O2SAT 97
--- NOTE | 2018-09-27 09:05 | PCM.DC ---
- Discharge Diagnoses Current Active Problems: Current Active and Chronic Problems Acute pulmonary embolism (Acute) Seminoma of right testis (Acute) Left flank pain (Acute) You will use the following diet at home:: Regular Discharge Activity: May not drive while taking narcotic pain medications. Additional Instructions: Follow-up with your oncologist, Dr. Monk RUTHERFORD architecture faculty member and oncologist for PE and seminoma of right testis Allergies/Adverse Reactions: Allergies Penicillins [PCN] Allergy (Verified 09/26/18 09:10) Hives shellfish derived Allergy (Verified 09/26/18 09:10) Angioedema Medications to take at Discharge Omeprazole [Prilosec] 20 mg PO DAILY 09/01/18 Ondansetron [Zofran Odt] 4 mg PO Q8H PRN PRN 09/01/18 Prochlorperazine Maleate [Compazine] 10 mg PO Q6H PRN PRN 09/01/18 Dicyclomine HCl [Bentyl] 20 mg PO TIDAC 09/26/18 Lorazepam [Ativan] 0.5 mg PO DAILY PRN PRN 09/26/18 Ondansetron HCl [Zofran] 4 mg PO PRN PRN 09/26/18 Sumatriptan Succinate [Imitrex] 50 mg PO PRN PRN 09/26/18 Albuterol Inhaler [Ventolin Hfa] 2 puff INHALATION Q4H PRN PRN #1 inhaler 09/27/18 Apixaban [Eliquis] 10 mg PO BID #60 tab.ds.pk 09/27/18 Docusate Sodium [Colace] 200 mg PO BID PRN PRN capsule 09/27/18 Levofloxacin [Levaquin] 750 mg PO DAILY #5 tab 09/27/18 The following prescriptions were given: Albuterol Inhaler [Ventolin Hfa] 2 puff INHALATION Q4H PRN PRN #1 inhaler PRN Reason: sob/Wheezing Levofloxacin [Levaquin] 750 mg PO DAILY #5 tab Apixaban [Eliquis] 10 mg PO BID #60 tab.ds.pk Primary Care Physician: Prasanna Pride [Primary Care Provider] - Please follow up with your Primary Care Physician in: in 1-2 week Test Results: Test results from this visit will be discussed in further detail at your follow-up appointment, if applicable.
--- NOTE | 2018-09-27 09:08 | DCINST_ITS ---
- Discharge Diagnoses Current Active Problems: Current Active and Chronic Problems Acute pulmonary embolism (Acute) Seminoma of right testis (Acute) Left flank pain (Acute) You will use the following diet at home:: Regular Discharge Activity: May not drive while taking narcotic pain medications. Additional Instructions: Follow-up with your oncologist, Dr. Monk RUTHERFORD zyglo inspector and oncologist for PE and seminoma of right testis Allergies/Adverse Reactions: Allergies Penicillins [PCN] Allergy (Verified 09/26/18 09:10) Hives shellfish derived Allergy (Verified 09/26/18 09:10) Angioedema Medications to take at Discharge Omeprazole [Prilosec] 20 mg PO DAILY 09/01/18 Ondansetron [Zofran Odt] 4 mg PO Q8H PRN PRN 09/01/18 Prochlorperazine Maleate [Compazine] 10 mg PO Q6H PRN PRN 09/01/18 Dicyclomine HCl [Bentyl] 20 mg PO TIDAC 09/26/18 Lorazepam [Ativan] 0.5 mg PO DAILY PRN PRN 09/26/18 Ondansetron HCl [Zofran] 4 mg PO PRN PRN 09/26/18 Sumatriptan Succinate [Imitrex] 50 mg PO PRN PRN 09/26/18 Albuterol Inhaler [Ventolin Hfa] 2 puff INHALATION Q4H PRN PRN #1 inhaler 09/27/18 Apixaban [Eliquis] 10 mg PO BID #60 tab.ds.pk 09/27/18 Docusate Sodium [Colace] 200 mg PO BID PRN PRN capsule 09/27/18 Levofloxacin [Levaquin] 750 mg PO DAILY #5 tab 09/27/18 The following prescriptions were given: Albuterol Inhaler [Ventolin Hfa] 2 puff INHALATION Q4H PRN PRN #1 inhaler PRN Reason: sob/Wheezing Levofloxacin [Levaquin] 750 mg PO DAILY #5 tab Apixaban [Eliquis] 10 mg PO BID #60 tab.ds.pk Primary Care Physician: Prasanna Pride [Primary Care Provider] - Please follow up with your Primary Care Physician in: in 1-2 week Test Results: Test results from this visit will be discussed in further detail at your follow- up appointment, if applicable.
--- NOTE | 2018-09-27 09:08 | DS.PCM_ITS ---
Discharge Date and Diagnosis - Problem List Patient Problems: Active and Suspected Problems Acute pulmonary embolism (Acute) Seminoma of right testis (Acute) Left flank pain (Acute) Date of Admission: 09/26/18 Date of Discharge: 09/27/18 - Primary Discharge Diagnosis Active and Suspected Problems Acute bilateral pulmonary artery emboli with bilateral posterior pleuritic chest pain worse on left side: Left lower lobe community-acquired pneumonia Hospital Course and Treatment Summary of Care Provided: []The patient is a 33 year old M with history of testicular cancer, seminoma had right orchiectomy came to ER with left lower chest/flank pain, pleuritic in nature exacerbated on deep breathing. Patient gets [address] surveillance on a recent lymphadenopathy in abdomen most probably retroperitoneal lymphadenopathy. Patient did not had previous PE or DVT as he gets surveillance CT chest too. He had superficial thrombophlebitis of hand and forearm due to IV line in the past. The patient further said he gets short of breath on the fifth 6-day of every cycle of chemotherapy but this time he was very short of breath, loss of energy mild dyspnea on exertion but denies chest pain or chest pressure. In ED, heart rate 100/min, no hypoxia or tachypnea blood pressure 119/75. CT chest showed focal left lower lobe infiltrate and pleural-based nodularity in right lower lung with normal retroperitoneum reported. CT chest was done and reported as multiple, diffuse bilateral right and left pulmonary arteries and lobar branches and further subdivision, worse on the left side PE with infiltration left lower lobe. 1. Acute bilateral pulmonary artery emboli with bilateral posterior pleuritic chest pain worse on left side: Patient is being admitted in PCU. Started on Lovenox 1 mg/kg body weight every 12 hourly. cardiac monitor technician. EKG showed normal sinus rhythm at 92 bpm with incomplete RBBB and small S1Q3T3 changes. IV fluid normal saline at 100 mls per hour. The exact etiology of PE unclear but possible secondary to chemotherapy. 2D echo was done and showed normal RV size and thickness with normal systolic function. Normal tricuspid valve with trivial TR. RVSP 27 mmHg. Estimated EF 65% with stage I diastolic dysfunction. Normal regional wall motion abnormality. The patient does not have insurance but is medication refill is from [place] [facility]. Patient agreed for taking Eliquis. Discharged on Eliquis as per PE protocol for 10 mg twice daily for 6 more days and then 5 mg twice daily. The patient has also pleuritic pain mainly bilateral worse on left side on deep inspiration, controlled on oxycodone. Patient requested oxycodone and prescription given for oxycodone 5 mg every 4 hourly as needed for severe pain t otal 10 tablets. Follow with PCP in 1-2 weeks. 2. Right-sided seminoma, CA testis on chemotherapy status post right orchidectomy: Patient follows oncologist, Dr Lorenz, in [facility]. He is on fourth cycle of cisplatin and etoposide, last one past . Previously he had 2 cycles with bleomycin but was discontinued because of possible pulmonary toxicity. 3. Left lower lower lobe possible HCAP: Pneumonia or pulmonary embolism possible cause of pleuritic left lower chest pain/flank pain. CT chest shows evidence of airspace disease in left lower lobe. Started on IV Levaquin 750 mg daily as he is allergic to penicillin. Pneumonia workup including urinary antigens and flu test negative. Blood cultures are negative so far. Patient is discharged on Levaquin 750 mg for 5 days. Follow-up with oncologist Dr. Linda in [facility] in 2-3 weeks for for follow-up of PE and right-sided seminoma. Discharge medication and follow-up instructions discussed in detail with the patient and patient's present in the room. Prescriptions given as mentioned above. Total time spent, exact 35 minutes on discharge meds reconciliation, examination, review of imaging and blood test and discussion with the patient on follow-up instructions. Patient clinically improved sooner than expected and is discharged This note was generated with [employer] dictation software. Every effort was made to ensure accuracy, however computerized expense clerk mistakes may persist. Patient Problems: Active and Suspected Problems Acute pulmonary embolism (Acute) Seminoma of right testis (Acute) Left flank pain (Acute) - Physical Exam General: Alert, Oriented x3, Cooperative HEENT: Atraumatic, PERRLA, EOMI, Normocephalic Neck: Supple, No JVD, Negative Carotid Bruits Lungs: Clear to auscultation, No rhonchi, No wheeze, No rales, Diminished - Air entry diminished mainly from decreased respiratory effort, - - Slight tenderness on left lower half of chest probably secondary to pleuritic pain from PE Cardiovascular: Regular rate, Regular Rhythm, Normal S1, Normal S2, No murmurs Abdomen: Bowel Sounds Present, Soft, Non Tender, Non-Distended Extremities: No edema, Capillary Refill Less than 3 Seconds Skin: No rashes, No breakdown Musculoskeletal: No Tenderness to Palpation of Joints or Extremities Neurological: Cranial nerves II-XII grossly intact Psych/Mental Status: Normal Affect, Appropriate Vital Signs Temp Pulse Resp BP Pulse Ox 97.8 F 86 18 122/62 H 97 09/27/18 08:45 09/27/18 08:45 09/27/18 08:45 09/27/18 08:45 09/27/18 08:45 Oxygen Flow Rate (L/min) 3 Oxygen Delivery Method Room Air Weight: 175 lb Body Mass Index (BMI) 26.6 Intake and Output for Last 24 Hours 09/25/18 09/26/18 09/27/18 23:59 23:59 23:59 Intake Total 463 / 463 1752 / 1752 Output Total 50 / 50 Balance 463 / 463 1702 / 1702 Microbiology Past 72 Hours 09/26/18 20:44 Gram Stain - Preliminary Sputum, Expectorated/Coughed 09/26/18 16:20 Influenza Types A,B Direct FA (MICHELLE) - Final Mucosa - Nasopharyngeal 09/26/18 10:05 Streptococcus pneumoniae Antigen (M - Final Urine, Clean Catch 09/26/18 10:05 Legionella Antigen - Final Urine, Clean Catch Laboratory Tests Past 24 Hrs 09/26/18 09/26/18 09/26/18 09:52 09:52 09:52 WBC 4.5 RBC 4.01 L Hgb 12.0 L Hct 35.0 L MCV 87.3 MCH 29.9 MCHC 34.3 RDW 13.8 RDW Differential 43.4 Plt Count 187 MPV 9.6 Immature Gran % (Auto) 0.400 Neut % (Auto) 77.9 H Lymph % (Auto) 19.1 Moore % (Auto) 2.2 Eos % (Auto) 0.2 Baso % (Auto) 0.2 Absolute Neuts (auto) 3.5 Absolute Lymphs (auto) 0.86 Total Counted Not Reportable APTT Sodium 137 Potassium 4.3 Chloride 100 Carbon Dioxide 28.0 Anion Gap 9 BUN 16 Creatinine 1.08 Estim Creat Clear Calc 94.12 Est GFR (MDRD) Af Amer 101 Est GFR (MDRD) Non-Af 84 BUN/Creatinine Ratio 14.8 Glucose 92 Calcium 8.8 Total Bilirubin 0.60 AST 15 ALT 40 Alkaline Phosphatase 102 Troponin I B-Natriuretic Peptide 2.1 Total Protein 6.8 Albumin 3.2 Globulin 3.6 Albumin/Globulin Ratio 0.9 Urine Color Urine Clarity Urine pH Ur Specific [place] Urine Protein Urine Glucose (UA) Urine Ketones Urine Occult Blood Urine Nitrite Urine Bilirubin Urine Urobilinogen Ur Leukocyte Esterase Urine RBC Urine WBC Ur Squamous Epith Cells Urine Bacteria Urine Mucus MRSA (PCR) 09/26/18 09/26/18 09/26/18 10:05 12:50 15:35 WBC RBC Hgb Hct MCV MCH MCHC RDW RDW Differential Plt Count MPV Immature Gran % (Auto) Neut % (Auto) Lymph % (Auto) Moore % (Auto) Eos % (Auto) Baso % (Auto) Absolute Neuts (auto) Absolute Lymphs (auto) Total Counted APTT 24.8 Sodium Potassium Chloride Carbon Dioxide Anion Gap BUN Creatinine Estim Creat Clear Calc Est GFR (MDRD) Af Amer Est GFR (MDRD) Non-Af BUN/Creatinine Ratio Glucose Calcium Total Bilirubin AST ALT Alkaline Phosphatase Troponin I B-Natriuretic Peptide Total Protein Albumin Globulin Albumin/Globulin Ratio Urine Color Yellow Urine Clarity Clear Urine pH 7.0 Ur Specific [place] 1.010 Urine Protein 30 H Urine Glucose (UA) Normal Urine Ketones Negative Urine Occult Blood 50 H Urine Nitrite Negative Urine Bilirubin Negative Urine Urobilinogen Normal Ur Leukocyte Esterase Negative Urine RBC 5-10 SEEN Urine WBC 0 SEEN Ur Squamous Epith Cells 0 SEEN Urine Bacteria 0 SEEN Urine Mucus 0 SEEN MRSA (PCR) Negative 09/26/18 09/26/18 09/26/18 15:43 18:13 20:44 WBC RBC Hgb Hct MCV MCH MCHC RDW RDW Differential Plt Count MPV Immature Gran % (Auto) Neut % (Auto) Lymph % (Auto) Moore % (Auto) Eos % (Auto) Baso % (Auto) Absolute Neuts (auto) Absolute Lymphs (auto) Total Counted APTT Sodium Potassium Chloride Carbon Dioxide Anion Gap BUN Creatinine Estim Creat Clear Calc Est GFR (MDRD) Af Amer Est GFR (MDRD) Non-Af BUN/Creatinine Ratio Glucose Calcium Total Bilirubin AST ALT Alkaline Phosphatase Troponin I < 0.015 < 0.015 < 0.015 B-Natriuretic Peptide Total Protein Albumin Globulin Albumin/Globulin Ratio Urine Color Urine Clarity Urine pH Ur Specific [place] Urine Protein Urine Glucose (UA) Urine Ketones Urine Occult Blood Urine Nitrite Urine Bilirubin Urine Urobilinogen Ur Leukocyte Esterase Urine RBC Urine WBC Ur Squamous Epith Cells Urine Bacteria Urine Mucus MRSA (PCR) 09/27/18 09/27/18 05:11 05:11 WBC 3.5 L RBC 3.36 L Hgb 9.9 L Hct 29.5 L MCV 87.8 MCH 29.5 MCHC 33.6 RDW 13.8 RDW Differential 44.6 H Plt Count 185 MPV 9.4 Immature Gran % (Auto) Neut % (Auto) Lymph % (Auto) Moore % (Auto) Eos % (Auto) Baso % (Auto) Absolute Neuts (auto) Absolute Lymphs (auto) Total Counted APTT Sodium 139 Potassium 4.2 Chloride 105 Carbon Dioxide 26.0 Anion Gap 8 BUN 16 Creatinine 0.97 Estim Creat Clear Calc 104.79 Est GFR (MDRD) Af Amer 115 Est GFR (MDRD) Non-Af 95 BUN/Creatinine Ratio 16.6 Glucose 94 Calcium 8.5 Total Bilirubin AST ALT Alkaline Phosphatase Troponin I B-Natriuretic Peptide Total Protein Albumin Globulin Albumin/Globulin Ratio Urine Color Urine Clarity Urine pH Ur Specific [place] Urine Protein Urine Glucose (UA) Urine Ketones Urine Occult Blood Urine Nitrite Urine Bilirubin Urine Urobilinogen Ur Leukocyte Esterase Urine RBC Urine WBC Ur Squamous Epith Cells Urine Bacteria Urine Mucus MRSA (PCR) Discharge Activity: May not drive while taking narcotic pain medications. Home Medications: Medications to take at Discharge Omeprazole [Prilosec] 20 mg PO DAILY 09/01/18 Ondansetron [Zofran Odt] 4 mg PO Q8H PRN PRN 09/01/18 Prochlorperazine Maleate [Compazine] 10 mg PO Q6H PRN PRN 09/01/18 Dicyclomine HCl [Bentyl] 20 mg PO TIDAC 09/26/18 Lorazepam [Ativan] 0.5 mg PO DAILY PRN PRN 09/26/18 Ondansetron HCl [Zofran] 4 mg PO PRN PRN 09/26/18 Sumatriptan Succinate [Imitrex] 50 mg PO PRN PRN 09/26/18 Albuterol Inhaler [Ventolin Hfa] 2 puff INHALATION Q4H PRN PRN #1 inhaler 09/27/18 Apixaban [Eliquis] 10 mg PO BID #60 tab.ds.pk 09/27/18 Docusate Sodium [Colace] 200 mg PO BID PRN PRN capsule 09/27/18 Levofloxacin [Levaquin] 750 mg PO DAILY #5 tab 09/27/18 Oxycodone [Oxyir] 5 mg PO Q4H PRN PRN #10 tab 09/27/18 Following Prescrptions Were Given to Patient: Albuterol Inhaler [Ventolin Hfa] 2 puff INHALATION Q4H PRN PRN #1 inhaler PRN Reason: sob/Wheezing Oxycodone [Oxyir] 5 mg PO Q4H PRN PRN #10 tab PRN Reason: Severe Pain (-08/15) Levofloxacin [Levaquin] 750 mg PO DAILY #5 tab Apixaban [Eliquis] 10 mg PO BID #60 tab.ds.pk Primary Care Physician: Prasanna Pride [Primary Care Provider] - Please follow up with your Primary Care Physician in: in 1-2 week Medical Necessity - Tobacco Use Smoking Status: Never smoker Meaningful Use Info Meaningful Use Diagnoses (Choose all that apply): VTE - VTE Anticoag overlap given w/in hospital stay or rx'd at dc?: Yes Pt receive overlap for 5 days?: Yes Code Visit Inpatient E&M: 94772 Disch Hosp
[2018-09-27] MEDS: levoFLOXacin IV 750 MG/150 ML BAG 100 MG IV (10:45)
[2018-09-27] MEDS: Pantoprazole Sodium 20 MG Tablet PO (10:47)
[2018-09-27] MEDS: Polyethylene Glycol 3350 17 GM PACKET PO (10:47)
[2018-09-27 12:31] VITALS: BP 121/68; PULSE 100; RESP 16; TEMP 36.7; O2SAT 98
--- NOTE | 2018-09-28 09:50 | CASEMGMT ---
SHANNAN SOLARES Discharge Follow-up Phone Call: JIM: Rogerio Strata: 3 Call Date: 09/28/18 Discharge Date: 09/27/18 Time of Call: [id number] Duration: 0 ? Admitting Diagnosis: Bilat PE's This SHANNAN SOLARES attempted to contact pt in regard to discharge follow-up. Noted documentation of pt being sent home on Eliquis and pt without insurance. Voicemail received and message left with contact information for Kimberly Machado RN, CM.
== END 2018-09-27 13:00 | disposition home or self-care (01) | DRG 175 ==
LOC: ED 09:34 → PCU 13:37
PROVIDERS: Admitting Provider Internal Medicine; Emergency Provider Emergency Medicine; Family Provider Family Medicine; PCP Family Medicine; Visit Provider Internal Medicine
DX: I26.99 Other pulmonary embolism without acute cor pulmonale (principal); J18.9 Pneumonia, unspecified organism; C62.91 Malignant neoplasm of right testis, unspecified whether descended or undescended; Z90.79 Acquired absence of other genital organ(s); Z79.899 Other long term (current) drug therapy; Z88.0 Allergy status to penicillin
CPT/HCPCS: 36415; 71046; 71275; 74176; 80048; 80053; 81001; 83880; 84484; 85025; 85027; 85730; 87040; 87070; 87205; 87449; 87641; 87804; 93005; 93306; 99282; J7030; Q9967; A4216; J2405

== ENCOUNTER → 2021-08-09 11:54 | Outpatient (CLI) | payer OTHER, SELFPAY ==
[2021-06-17 14:56] VITALS: BMI 29.8
--- NOTE | 2021-08-09 11:56 | RAD_ITS ---
FLUOROSCOPIC GUIDED ARTHROGRAM FOR MRI ARTHROGRAM INDICATION: Right shoulder pain.. PERFORMING PHYSICIAN:Danny Mac MD DATE OF PROCEDURE: 08/09/2021 AUTOMATIC I THREADING MACHINE FEEDER: NONE ESTIMATED BLOOD LOSS: Negligible SPECIMENS REMOVED: None COMPLICATIONS: None FLUOROSCOPY TIME: 0:46 minutes. Informed consent was obtained from the patient. The risks (including bleeding, infection and capsular rupture), benefits, and alternatives to the examination were discussed. The patient was draped and prepared in a sterile fashion. The entrance site was localized using fluoroscopic guidance. Local anesthesia was achieved with 1% lidocaine solution. A 21-gauge spinal needle and stylet were introduced with fluoroscopic guidance into the shoulder joint capsule and approximately 2 mL of iodinated contrast was instilled to confirm intra-articular position. Approximately 15 mL of a mixture of gadolinium and normal saline was instilled in the joint capsule. The needle was then removed. The entrance site was dressed with a Band-Aid. There were no immediate postprocedural complications. Patient was sent to MRI for arthrogram. RAD/Arthrogram Shoulder w/ MRI IMPRESSION: Uneventful shoulder arthrogram (right) for MRI. Electronically Signed: Danny Mac MD at 16:02 EDT Tel , Service support ,
--- NOTE | 2021-08-09 12:17 | MRI_ITS ---
STUDY: MRI ARTHROGRAM RIGHT SHOULDER REASON FOR EXAM: Male, 36 years old. PAIN,INTERNAL DERANGEMENT TECHNIQUE: Intra-articular injection of 15 ml of YES YES mixed with additional contrast material was performed by an on-site physician. T1, T2, and fat suppressed images were obtained in all three orthogonal planes. COMPARISON: Right shoulder arthrogram dated August 09, 2021 FINDINGS: There is intra-articular contrast distention of the glenohumeral articulation, secondary to the gadolinium injection, with adequate capsular distention. Normal supraspinatus tendon. Normal infraspinatus tendon. Normal subscapularis tendon. Normal teres minor tendon. There is no demonstrated tear of the rotator cuff. Normal supraspinatus muscle. Normal infraspinatus muscle. Normal subscapularis muscle. Normal teres minor muscle. The glenohumeral articulation is mildly narrowed with minimal cortical spurring. There is a cortical erosion at the insertion of the supraspinatus tendon. Normal biceps labral complex. Normal intracapsular long biceps tendon. There is complex tearing in the posterior inferior aspect of the glenoid labrum. A small linear tear is also seen in the posterior aspect of superior glenoid labrum. The anterior glenoid labrum is diffusely blunted. Normal capsulo- ligamentous complex. Normal rotator interval. Normal acromioclavicular articulation. There is a Type II morphology (curved), with a neutral orientation. There is no subacromial-subdeltoid bursal fluid. Normal visualized coracohumeral and coracoacromial ligaments. Normal quadrilateral space. Normal axillary space. Normal deltoid muscle. Normal trapezius muscle MRI/Upper Ext Jt Only W/Contrast IMPRESSION: 1. Complex tearing in the posterior inferior aspect of the glenoid labrum. A small linear tear is also seen in the posterior aspect of superior glenoid labrum. The anterior glenoid labrum is diffusely blunted Electronically Signed: Rodolfo King MD at 22:08 EDT , Service support ,
[2021-08-09] MEDS: Lidocaine 2% (5ml sdv) 5 ML VIAL.MPF INFILT (12:30)
[2021-08-09] MEDS: Iopamidol 10 ML in Syringe 1 EACH 600 ML INTRAARTIC (12:40)
== END ==
LOC: RAD 11:56
PROVIDERS: PCP Family Medicine; Referring Provider Physician Assistant; Visit Provider Physician Assistant
DX: M25.511 Pain in right shoulder (principal); M24.811 Other specific joint derangements of right shoulder, not elsewhere classified
CPT/HCPCS: 23350; 73222; 77002; A9575; Q9967